=== PATIENT | male | born 1985 | race African-American/Black ===

== ENCOUNTER 2017-03-28 06:49 | Emergency (ER) | payer OTHER ==
[~2017-03-28] VITALS: Ht 185.4 cm; Wt 75.0 kg
[2017-03-28] MEDS ORDERED: IBUPROFEN 600MG TABLET PO ONE (09:30)
[2017-03-28 09:49] VITALS: BP 154/85
== END 2017-03-28 11:15 | disposition home or self-care (01) ==
LOC: ER 10:21
DX: S62.367A Nondisplaced fracture of neck of fifth metacarpal bone, left hand, initial encounter for closed fracture (principal); F17.210 Nicotine dependence, cigarettes, uncomplicated; Y04.0XXA Assault by unarmed brawl or fight, initial encounter; W22.01XA Walked into wall, initial encounter; Y93.89 Activity, other specified; Y92.89 Other specified places as the place of occurrence of the external cause
CPT/HCPCS: 29125; 73110; 73130; 99284